=== PATIENT | male | born 1995 | race Caucasian/White ===

== ENCOUNTER 2020-02-14 18:33 | Emergency (ER) | payer SELFPAY ==
--- NOTE | 2020-02-14 19:41 | EDM.PDOC ---
ED HPI GENERAL MEDICAL PROBLEM - General Chief Complaint: General Stated Complaint: FEVER AND COUGH Time Seen by Provider: 02/14/20 19:16 - History of Present Illness INITIAL COMMENTS - FREE TEXT/NARRATIVE: no medical problems no recent travel no fever, no cough presenting for sore throat and congestion, requesting work clearance. symptoms started day of presentation to ED throat Pain Score (Numeric/FACES): 3 - Related Data Allergies Allergy/AdvReac Type Severity Reaction Status Date / Time No Known Allergies Allergy Verified 02/14/20 18:52 Home Meds: Home Meds . [No Known Home Meds] 02/14/20 [History] Past Medical History - Past Health History Medical/Surgical History: Denies Medical/Surgical History Social & Family History - Family History Family Medical History: Noncontributory - Tobacco Use Smoking Status *Q: Never Smoker - Recreational Drug Use Recreational Drug Use: No ED ROS GENERAL - Review of Systems Review Of Systems: Comprehensive ROS is negative, except as noted in HPI. Constitutional: Reports: No Symptoms ED EXAM, GENERAL - Physical Exam Exam: See Below Free Text/Narrative:: patient in no distress wearing a mask speaking in full sentences no tahcypnea Exam Limited By: No Limitations General Appearance: Alert Ears: Normal External Exam Respiratory/Chest: No Respiratory Distress Skin Exam: No Rash Course - Vital Signs Last Recorded V/S: Last Vital Signs Temp 97.5 F 02/14/20 18:49 Pulse 75 02/14/20 18:49 Resp 16 02/14/20 18:49 BP 120/72 02/14/20 18:49 Pulse Ox 97 02/14/20 18:49 - Re-Assessments/Exams Free Text/Narrative Re-Assessment/Exam: 02/14/20 19:41 afebrile, given congestion unlikely to be strep return precautions discussed with the patient, worsening throat pain, fever, dyspnea, cough or any concerns Patient educated on self isolation patient educated on symtpoms of covid 19 told to self quarantine as per CDC : At least 3 days (72 hours) have passed since recovery defined as resolution of fever without the use of fever-reducing medications and improvement in respiratory symptoms (e.g., cough, shortness of breath); and, At least 7 days have passed since symptoms first appeared. Departure - Departure Time of Disposition: 19:47 Disposition: Home, Self-Care 01 Condition: Good Clinical Impression: URI (upper respiratory infection) - Discharge Information Instructions: Upper Respiratory Infection, Adult, [id number] Referrals: PCP,None [Primary Care Provider] - Additional Instructions: contact a health provider if you develop fever cough shortness of breath worsening pain or any concerns Self isolation: At least 3 days (72 hours) have passed since recovery defined as resolution of fever without the use of fever-reducing medications and improvement in respiratory symptoms (e.g., cough, shortness of breath); and, At least 7 days have passed since symptoms first appeared. The following information is given to patients seen in the emergency department who are being discharged to home. This information is to outline your options for follow-up care. We provide all patients seen in our emergency department with a follow-up referral. The need for follow-up, as well as the timing and circumstances, are variable depending upon the specifics of your emergency department visit. If you don't have a primary care physician on staff, we will provide you with a referral. We always advise you to contact your personal physician following an emergency department visit to inform them of the circumstance of the visit and for follow-up with them and/or the need for any referrals to a consulting specialist. The emergency department will also refer you to a specialist when appropriate. This referral assures that you have the opportunity for follow-up care with a specialist. All of these measure are taken in an effort to provide you with optimal care, which includes your follow-up. Under all circumstances we always encourage you to contact your private physician who remains a resource for coordinating your care. When calling for follow-up care, please make the office aware that this follow-up is from your recent emergency room visit. If for any reason you are refused follow-up, please contact the [facility] Emergency Department at and asked to speak to the emergency department charge nurse Sepsis Event Note - Evaluation Sepsis Screening Result: No Definite Risk - Focused Exam Vital Signs: Vital Signs Temp Pulse Resp BP Pulse Ox 02/14/20 18:49 97.5 F 75 16 120/72 97 Date Exam was Performed: 02/14/20 Time Exam was Performed: 19:36
== END 2020-02-14 20:04 | disposition home or self-care (01) ==
LOC: MW.ED 18:33
DX: J06.9 Acute upper respiratory infection, unspecified (principal)
CPT/HCPCS: 99282; 99283

== ENCOUNTER 2020-10-11 10:00 | Emergency (ER) | payer SELFPAY ==
--- NOTE | 2020-10-11 10:04 | EDM.PDOC ---
ED HPI GENERAL MEDICAL PROBLEM - General Stated Complaint: CHILLS COUGH THROAT SORE Time Seen by Provider: 10/11/20 10:02 Source of Information: Reports: Patient History Limitations: Reports: No Limitations - History of Present Illness INITIAL COMMENTS - FREE TEXT/NARRATIVE: HISTORY AND PHYSICAL: History of present illness: Patient is a 24-year-old male who presents to the emergency room with complaints of generalized body aches, sinus pressure/congestion, subjective fever/chills and sore throat. He states the sore throat started today although the other symptoms have been ongoing for the past 2 to 3 days. He is concerned he may have COVID-19. Patient denies any headache, change in vision, syncope or near syncope. Denies any chest pain, back pain, shortness of breath or cough. Denies any abdominal pain, nausea, vomiting, diarrhea, constipation or dysuria. Patient has been eating and drinking appropriately. No known personal history of any medical problems. Review of systems: As per history of present illness and below otherwise all systems reviewed and negative. Past medical history: As per history of present illness and as reviewed below otherwise noncontributory. Surgical history: As per history of present illness and as reviewed below otherwise noncontributory. Social history: See social history for further information Family history: As per history of present illness and as reviewed below otherwise noncontributory. Physical exam: General: Well developed and well nourished 24 year old male. Alert and orientated x 3. Nontoxic in appearance and in no acute distress. Vital signs are stable and have been reviewed by me. Nursing notes were reviewed. HEENT: Atraumatic, normocephalic, pupils equal and reactive bilaterally, negative for conjunctival pallor or scleral icterus, mucous membranes moist, TMs normal bilaterally, throat clear, neck supple, nontender, trachea midline. No drooling or trismus noted. No meningeal signs. No hot potato voice noted. Lungs: Clear to auscultation, breath sounds equal bilaterally, chest nontender. Normal work of breathing, no accessory muscles used. Heart: S1S2, regular rate and rhythm without overt murmur Abdomen: Soft, nondistended, nontender. Negative for masses or hepatosplenomegaly. Negative for costovertebral tenderness. Skin: Intact, warm, dry. No lesions or rashes noted. Hematologic: No petechiae or purpra. Mucosa appropriate color and normal nail bed color and refill. Extremities: Atraumatic, moves all extremities per self without difficulty or deficits, negative for cords or calf pain. Neurovascular unremarkable. Neuro: Awake, alert, oriented. Cranial nerves II through XII unremarkable. Cerebellum unremarkable. Motor and sensory unremarkable throughout. Exam nonfocal. Psychiatric: Mood and affect are appropriate. Normal thought process. Answering questions appropriately. Notes: Patient's strep and Covid screening are negative. Due to his symptomatology I did ask him to quarantine until he has his state results back. His vital signs are stable and he is appropriate to be discharged to home. I have talked with the patient about today's findings, in addition to providing specific details for plan of care. Reassessment at the time of disposition demonstrates that the patient is in no acute distress. The patient is stable for discharge, counseling was provided and we discussed in great detail signs and symptoms that would prompt them to return to the Emergency Department. Medication, follow up and supportive care measures were reviewed and discussed. Voices understanding and is agreeable to plan of care. Denies any further questions or concerns at this time. Diagnostics: COVID-19, STrep Therapeutics: None Prescription: None Impression: Viral illness Plan: 1. Your COVID-19 screening is negative. If you are not in close contact to someone who is positive, you should continue to practice physical distancing and limit your interactions with others as much as possible. You may attend work and attend/perform essential activities if you are not sick. If you continue to feel unwell please stay home. If you are in close contact with someone who tested positive, then you should continue to quarantine until you complete 10 days. 2. COVID-19 testing is not 100% accurate, we have done a send out swab to the [facility], this takes 2-4 days for results. 3. You can take NyQuil during the evening to help get a restful night sleep. Alternate Tylenol and ibuprofen as needed for pain and fever management. 4. The [place] COVID 19 Hotline phone number , They are open Wednesday - Wednesday 7am - 7pm. 5. Follow up with your primary care provider for re-evaluation and if your symptoms should worsen, new symptoms develop or you feel like you are not improving you are always welcome to return to the emergency room. Definitive disposition and diagnosis as appropriate pending reevaluation and review of above. - Related Data Allergies Allergy/AdvReac Type Severity Reaction Status Date / Time No Known Allergies Allergy Verified 10/11/20 10:23 Home Meds: Home Meds . [No Known Home Meds] 02/14/20 [History] Past Medical History - Past Health History Medical/Surgical History: Denies Medical/Surgical History Social & Family History - Family History Family Medical History: No Pertinent Family History ED ROS ENT - Review of Systems Review Of Systems: Comprehensive ROS is negative, except as noted in HPI. ED EXAM, ENT - Physical Exam Exam: See Below (See dictation) Course - Vital Signs Last Recorded V/S: Last Vital Signs Temp 98.1 F 10/11/20 10:23 Pulse 50 L 10/11/20 10:23 Resp 17 10/11/20 10:23 BP 111/69 10/11/20 10:23 Pulse Ox - Orders/Labs/Meds Orders: Active Orders 24 hr Category Date Time Status CORONAVIRUS COVID-19 PCR PHL Stat Lab 10/11/20 10:37 Received CULTURE STREP A CONFIRMATION [RM] Stat Lab 10/11/20 10:37 Results STREP SCRN A RAPID W CULT CONF [RM] Stat Lab 10/11/20 10:37 Results Labs: Laboratory Tests 10/11/20 Range/Units 10:37 SARS CoV-2 RNA Rapid JUDAH NEGATIVE (NEGATIVE) Departure - Departure Time of Disposition: 11:17 Disposition: Home, Self-Care 01 Clinical Impression: Viral illness - Discharge Information Instructions: Viral Respiratory Infection, [id number] Referrals: PCP,None [Primary Care Provider] - Forms: ED Department Discharge Additional Instructions: The following information is given to patients seen in the emergency department who are being discharged to home. This information is to outline your options for follow-up care. We provide all patients seen in our emergency department with a follow-up referral. The need for follow-up, as well as the timing and circumstances, are variable depending upon the specifics of your emergency department visit. If you don't have a primary care physician on staff, we will provide you with a referral. We always advise you to contact your personal physician following an emergency department visit to inform them of the circumstance of the visit and for follow-up with them and/or the need for any referrals to a consulting specialist. The emergency department will also refer you to a specialist when appropriate. This referral assures that you have the opportunity for follow-up care with a s pecialist. All of these measure are taken in an effort to provide you with optimal care, which includes your follow-up. Under all circumstances we always encourage you to contact your private physici an who remains a resource for coordinating your care. When calling for follow-up care, please make the office aware that this follow-up is from your recent emergency room visit. If for any reason you are refused follow-up, please contact the [facility] Emergency Department at and asked to speak to the emergency department charge nurse. [facility] [address] [place] [id number] [facility] [address] [place] [id number] Thank you for choosing the [facility] emergency department in [place] for your medical needs today. It was a pleasure caring for you. Today you were seen in the emergency department for COVID type symptoms. 1. Your COVID-19 screening is negative. If you are not in close contact to someone who is positive, you should continue to practice physical distancing and limit your interactions with others as much as possible. You may attend work and attend/perform essential activities if you are not sick. If you continue to feel unwell please stay home. If you are in close contact with someone who tested positive, then you should continue to quarantine until you complete 10 days. 2. COVID-19 testing is not 100% accurate, we have done a send out swab to the [place], this takes 2-4 days for results. 3. You can take NyQuil during the evening to help get a restful night sleep. Alternate Tylenol and ibuprofen as needed for pain and fever management. 4. The [place] COVID 19 Hotline phone number , They are open Wednesday - Wednesday 7am - 7pm. 5. Follow up with your primary care provider for re-evaluation and if your symptoms should worsen, new symptoms develop or you feel like you are not improving you are always welcome to return to the emergency room. Sepsis Event Note (ED) - Focused Exam Vital Signs: Vital Signs Temp Pulse Resp BP 10/11/20 10:23 98.1 F 50 L 17 111/69 - My Orders Last 24 Hours: My Active Orders 10/11/20 10:37 CORONAVIRUS COVID-19 PCR PHL Stat CULTURE STREP A CONFIRMATION [RM] Stat STREP SCRN A RAPID W CULT CONF [RM] Stat - Assessment/Plan Last 24 Hours: My Active Orders 10/11/20 10:37 CORONAVIRUS COVID-19 PCR PHL Stat CULTURE STREP A CONFIRMATION [RM] Stat STREP SCRN A RAPID W CULT CONF [RM] Stat
== END 2020-10-11 11:30 | disposition home or self-care (01) ==
LOC: MW.ED 10:00
DX: B34.9 Viral infection, unspecified (principal); Z20.828 Contact with and (suspected) exposure to other viral communicable diseases
CPT/HCPCS: 87081; 87880-QW; 99282; 99283; U0002

== ENCOUNTER 2021-04-01 07:41 | Emergency (ER) | payer SELFPAY ==
[2021-04-01] MEDS ORDERED: Ketorolac 15 MG/ML SDV IM ONE (08:16)
--- NOTE | 2021-04-01 08:56 | CR ---
Indication: Chest discomfort Comparison: None available. Technique: Single AP view chest Findings: There is no focal consolidation, effusion, or pneumothorax. The cardiomediastinal silhouette is within normal limits. The bony thorax is grossly intact. Impression: No acute cardiopulmonary abnormality. Dictated by Gabe Frances MD @ 04/01/2021 8:55:[address] Gabe Frances @ Apr 01 2021 8:55AM
--- NOTE | 2021-04-01 09:56 | EDM.PDOC ---
ED HPI GENERAL MEDICAL PROBLEM - General Chief Complaint: General Stated Complaint: SORE THROAT Time Seen by Provider: 04/01/21 08:03 - History of Present Illness INITIAL COMMENTS - FREE TEXT/NARRATIVE: CHIEF COMPLAINT(S): "Not feeling good." HISTORY OF PRESENT ILLNESS: This is a 25-year-old man without any significant past medical history who comes to the emergency department with a chief complaint of "not feeling good." The patient states that he has been experiencing a stuffy nose, sore throat and inflammation. He states that he has been experiencing some diarrhea today which is nonbloody and nonbilious and denies any abdominal pain. He states that he sometimes has seasonal allergies but everybody was feeling fine and then 1 week ago he had contacts where everybody was having diarrhea, stuffy nose and sore throat. He states that his chest also feels bruised for the last 3 days and denies any shortness of breath, back pain, history of CAD, CHF. He states that he needs some paperwork filled out for his work because he is here today. REVIEW OF SYSTEMS: Constitutional: Denies fever, chills. Eyes: Denies eye pain Ears, Nose, Mouth, & Throat: Positive for sore throat, runny nose, congestion denies earache Cardiovascular: Positive for chest discomfort. Denies chest pain Respiratory: Denies shortness of breath Gastrointestinal: Positive for abdominal pain, diarrhea. Denies nausea, vomiting Genitourinary: Denies hematuria Skin:Denies a rash MSK: Denies joint pain Neurological: Denies blurred vision Psychiatric: Denies depression PAST MEDICAL HISTORY: As per history of present illness and as reviewed below otherwise noncontributory. SURGICAL HISTORY: As per history of present illness and as reviewed below otherwise noncontributory. SOCIAL HISTORY: As per history of present illness and as reviewed below otherwise noncontributory. FAMILY HISTORY: As per history of present illness and as reviewed below otherwise noncontributory. EXAMINATION OF ORGAN SYSTEMS/BODY AREAS: Constitutional: Blood pressure was 112/61, heart rate 55, respiratory rate 15 with an oxygen saturation 97% on room air. Temperature 36.2 General: Overall well-appearing man who is in no acute distress. Psychiatric: Appropriate mood and affect. Eyes: No scleral icterus or conjunctival erythema ENMT: Moist mucous membranes. No pharyngeal erythema Cardiovascular: Regular, rate, and rhythm. No gallops, murmurs, or rubs. Bilateral upper extremity pulses symmetric and intact. No peripheral edema. No JVD. Respiratory: Lungs clear to auscultation bilaterally. No wheezes, rales, or rhonchi. Gastrointestinal: Soft, non-tender, non-distended. Normoactive bowel sounds no rebound or guarding. Genitourinary: No suprapubic tenderness Musculoskeletal: Normal range of motion. Skin: No lesions or abrasions. Neurological: Alert, GCS 15 MEDICAL DECISION MAKING AND COURSE IN THE ED WITH INTERPRETATION/REVIEW OF DIAGNOSTIC STUDIES: This is a 25-year-old man without any significant past medical history who comes to the emergency department with multiple complaints including allergic-like symptoms and diarrhea with abdominal pain with known sick contacts who overall appears well. At this time we will provide the patient with Toradol IM and obtain a [id number] glucose. A screening EKG was obtained which did not reveal any acute signs of ischemia. We will obtain a stool sample to evaluate for stool culture and studies. Will obtain a chest x- ray. We will reevaluate the patient after this. I do not believe any further imaging or work-up is indicated. The patient was able to provide a stool sample. The sample was not diarrhea and there was a fully formed stool. At this time I do not believe any further work- up is indicated. The radiological images were viewed by myself along with reading the report from the radiologist. Chest x-ray does not reveal any acute cardiopulmonary process After initial work-up the patient reported improvement in his pain. I did discuss them at this time that although his stool was formed if he has any continued diarrhea the need to maintain adequate fluid hydration. He is to return for any new or worsening symptoms such as worsening chest pain, shortness of breath, passing out. He was amenable to discharge at this time and had no further questions DISPOSITION: The patient was discharged home in stable condition. The patient will follow up with primary care physician in 2 to 3 days CONDITION: Fair PROCEDURES: None FINAL IMPRESSION(S)/DIAGNOSES: 1. Acute abdominal pain and diarrhea likely secondary to gastritis except defaults 2. Acute atypical chest pain Lobo Yeboah M.D. - Related Data Allergies Allergy/AdvReac Type Severity Reaction Status Date / Time No Known Allergies Allergy Verified 04/01/21 07:58 Home Meds: Home Meds . [No Known Home Meds] 02/14/20 [History] Past Medical History - Past Health History Medical/Surgical History: Denies Medical/Surgical History HEENT History: Reports: None Cardiovascular History: Reports: None Respiratory History: Reports: None Gastrointestinal History: Reports: None Genitourinary History: Reports: None Musculoskeletal History: Reports: None Neurological History: Reports: None Psychiatric History: Reports: None Endocrine/Metabolic History: Reports: None Hematologic History: Reports: None Immunologic History: Reports: None Oncologic (Cancer) History: Reports: None Dermatologic History: Reports: None - Infectious Disease History Infectious Disease History: Reports: None - Past Surgical History Head Surgeries/Procedures: Reports: None HEENT Surgical History: Reports: None Cardiovascular Surgical History: Reports: None Respiratory Surgical History: Reports: None GI Surgical History: Reports: None Male Surgical History: Reports: None Endocrine Surgical History: Reports: None Neurological Surgical History: Reports: None Musculoskeletal Surgical History: Reports: None Oncologic Surgical History: Reports: None Dermatological Surgical History: Reports: None Social & Family History - Family History Family Medical History: No Pertinent Family History - Tobacco Use Tobacco Use Status *Q: Former Tobacco User Used Tobacco, but Quit: No - Caffeine Use Caffeine Use: Reports: None - Recreational Drug Use Recreational Drug Use: No ED ROS GENERAL - Review of Systems Review Of Systems: See Below ED EXAM, GENERAL - Physical Exam Exam: See Below Course - Vital Signs Last Recorded V/S: Last Vital Signs Temp 36.2 C 04/01/21 07:58 Pulse 50 L 04/01/21 09:48 Resp 15 04/01/21 07:58 BP 112/69 04/01/21 09:48 Pulse Ox 98 04/01/21 09:48 - Orders/Labs/Meds Labs: Laboratory Tests 04/01/21 Range/Units 08:22 POC Glucose 88 (70-99) mg/dL Meds: Medications Discontinued Medications Generic Name Dose Route Start Last Admin Trade Name Martha PRN Reason Stop Dose Admin Ketorolac Tromethamine 15 mg 04/01/21 08:16 04/01/21 08:25 Ketorolac 15 Mg/Ml Sdv IM 04/01/21 08:17 15 mg ONETIME ONE Administration Departure - Departure Time of Disposition: 09:55 Disposition: Home, Self-Care 01 Condition: Fair Clinical Impression: Diarrhea, Chest pain - Discharge Information *PRESCRIPTION DRUG MONITORING PROGRAM REVIEWED*: No *COPY OF PRESCRIPTION DRUG MONITORING REPORT IN PATIENT MANAS: No Instructions: Nonspecific Chest Pain, Adult, [id number], Diarrhea, Adult, [id number] Referrals: PCP,None [Primary Care Provider] - Forms: ED Department Discharge Additional Instructions: You evaluate today on an emergent basis. At this time your work-up was negative. Your chest x-ray was normal. We did obtain a stool sample however it was not diarrhea. If you continue to have diarrhea I recommend that you continue with fluid in the form of Gatorade or Pedialyte to maintain hydration. If you have any worsening chest pain, shortness of breath please return to the emergency department. Otherwise please follow-up with your primary care physician within 2 to 3 days. [facility] [address] [place], [place] [id number] [place] [address] The patient is informed of any results of their evaluation and diagnostic workup and all questions are answered. They are given discharge instructions and return precautions. The patient is stable for discharge. The patient states they understand and agree with the plan and that they will return if their symptoms get worse or if they have any new concerns. The following information is given to patients seen in the emergency department who are being discharged to home. This information is to outline your options for follow-up care. We provide all patients seen in our emergency department with a follow-up referral. The need for follow-up, as well as the timing and circumstances, are variable depending upon the specifics of your emergency department visit. If you don't have a primary care physician on staff, we will provide you with a referral. We always advise you to contact your personal physician following an emergency department visit to inform them of the circumstance of the visit and for follow-up with them and/or the need for any referrals to a consulting specialist. The emergency department will also refer you to a specialist when appropriate. This referral assures that you have the opportunity for follow-up care with a specialist. All of these measure are taken in an effort to provide you with optimal care, which includes your follow-up. Under all circumstances we always encourage you to contact your private physician who remains a resource for coordinating your care. When calling for follow-up care, please make the office aware that this follow-up is from your recent emergency room visit. If for any reason you are refused follow-up, please contact the [facility] Emergency Department at and asked to speak to the emergency department charge nurse. Sepsis Event Note (ED) - Evaluation Sepsis Screening Result: No Definite Risk
--- NOTE | 2021-04-02 18:50 | PCM.EKG ---
#1 Interpretation EKG Date: 04/01/21 Time: 08:27 Rhythm: NSR Rate (Beats/Min): 44 Duncan: Normal P-Wave: Present QRS: Normal ST-T: Normal QT: Normal Comparison: NA - No Prior EKG EKG Interpretation Comments: Sinus Bradycardia
== END 2021-04-01 10:04 | disposition home or self-care (01) ==
LOC: MW.ED 07:41
DX: R07.9 Chest pain, unspecified (principal); R10.9 Unspecified abdominal pain; R19.7 Diarrhea, unspecified; Z87.891 Personal history of nicotine dependence
CPT/HCPCS: 71045; 82947; 93005; 96372; 99284; J1885; 99283

== ENCOUNTER 2021-06-17 05:17 | Emergency (ER) | payer BC ==
[2021-06-17] MEDS ORDERED: Ondansetron 4 MG/2 ML SDV IVPUSH ONE (05:45)
[2021-06-17] MEDS ORDERED: Sodium Chloride 0.9% 10 ML Syringe FLUSH PRN (05:45)
[2021-06-17] MEDS ORDERED: Pantoprazole 40 MG in Sodium Chloride 0.9% 10 ML IV ONE (05:45)
[2021-06-17] MEDS ORDERED: Sodium Chloride 0.9% 2.5 ML Syringe FLUSH PRN (05:45)
[2021-06-17] MEDS ORDERED: Sodium Chloride 0.9% 1,000 ML IV ONE (05:45)
--- NOTE | 2021-06-17 06:26 | EDM.PDOC ---
<Jonatan Foster - Last Filed: 06/17/21 06:22> ED HPI GENERAL MEDICAL PROBLEM - General Chief Complaint: Gastrointestinal Problem Stated Complaint: ABDOMINAL PAIN, VOMITING, UNABLE TO EAT Time Seen by Provider: 06/17/21 06:40 - History of Present Illness INITIAL COMMENTS - FREE TEXT/NARRATIVE: HISTORY AND PHYSICAL: History of present illness: This is a 25-year-old gentleman with no significant past medical history for hypertension, diabetes, liver, lung, kidney, ulcer disease, intestinal issues, no abdominal surgeries, who presents ER today secondary to lower abdominal pain times several days with nausea and vomiting x1 yesterday. Patient denies any dysuria, frequency, urgency. Patient denies any recent fevers, shakes, chills. Patient has any cough or congestion. Patient reports that he went to see his doctor yesterday and was diagnosed with a stomach flu and was started on amoxicillin but patient is concerned that he may be developing ulcer or other issues unrelated to the stomach flu. Patient denies any melena or bright red blood per rectum. Patient reports that when he vomited it was food material with no hematemesis or coffee-ground material in the vomit. Patient denies any prior abdominal or chest surgeries. Patient denies any alcohol or drugs. Patient reports that he does vape. Patient has no known drug allergies. Review of systems: As per history of present illness and below otherwise all systems reviewed and negative. Past medical history: As per history of present illness and as reviewed below otherwise noncontributory. Surgical history: As per history of present illness and as reviewed below otherwise noncontributory. Social history: No reported history of drug abuse. Family history: As per history of present illness and as reviewed below otherwise noncontributory. Physical exam: This patient was seen and evaluated during the 2019 SARS-CoV-2 novel coronavirus pandemic period. Community viral transmission is ongoing at time of this encounter and the emergency department is operating under pandemic response procedures. Constitutional: Patient is oriented to person, place, and time. Appears well- developed and well-nourished. No distress. HEENT: Moist mucous membranes Head: Normocephalic and atraumatic Eyes: Right eye exhibits no discharge. Left eye exhibits no discharge. No scleral icterus Neck: Normal range of motion. No tracheal deviation present. Cardiovascular: Normal rate and regular rhythm. Pulmonary: Effort normal, no respiratory distress. Abd: Soft, nondistended, no rebound/guarding, no psoas or obturator signs, no tenderness at Mcberney's point, no Garg's sign. Pt does not present with an exam that would be consistent with an acute surgical abdomen at this time. Tenderness palpation to his right lower and left lower quadrants. Patient with minimal tenderness palpation to his midepigastric region Musculoskeletal: Normal range of motion Neurologic: Alert and oriented to person, place and time. Skin: [place], warm and dry. Psychiatric: Normal mood and affect. Behavior is normal. Judgment and thought content normal. Nursing note and vital signs have been reviewed Diagnostics: CBC, CMP, lipase, CT scan of the abdomen pelvis with IV contrast, urinalysis Therapeutics: Protonix 40 mg IV, Zofran 4 mg IV, NSS x1 L Assessment and plan: This is a healthy 25-year-old gentleman who presents ER today secondary to abdominal pain times several days with associated nausea and vomiting. Patient's exam is significant for tenderness to palpation to his left lower and right lower quadrants. Patient will have labs evaluated in the ED and will have a CT scan of his abdomen pelvis with contrast to assure no evidence of appendicitis on this patient. Patient has been given Protonix, Zofran and IV fluids in the ED and will be reassessed. 7 AM: Care signed out to oncoming physician Dr. Brown, for final disposition pending lab completion, CT scan of the abdomen pelvis, reevaluation. Definitive disposition and diagnosis as appropriate pending reevaluation and review of above. - Related Data Allergies Allergy/AdvReac Type Severity Reaction Status Date / Time No Known Allergies Allergy Verified 06/17/21 05:35 Home Meds: Home Meds . [No Known Home Meds] 02/14/20 [History] Past Medical History - Past Health History Medical/Surgical History: Denies Medical/Surgical History HEENT History: Reports: None Cardiovascular History: Reports: None Respiratory History: Reports: None Gastrointestinal History: Reports: None Genitourinary History: Reports: None Musculoskeletal History: Reports: None Neurological History: Reports: None Psychiatric History: Reports: None Endocrine/Metabolic History: Reports: None Hematologic History: Reports: None Immunologic History: Reports: None Oncologic (Cancer) History: Reports: None Dermatologic History: Reports: None - Infectious Disease History Infectious Disease History: Reports: None - Past Surgical History Head Surgeries/Procedures: Reports: None HEENT Surgical History: Reports: None Cardiovascular Surgical History: Reports: None Respiratory Surgical History: Reports: None GI Surgical History: Reports: None Male Surgical History: Reports: None Endocrine Surgical History: Reports: None Neurological Surgical History: Reports: None Musculoskeletal Surgical History: Reports: None Oncologic Surgical History: Reports: None Dermatological Surgical History: Reports: None Social & Family History - Family History Family Medical History: No Pertinent Family History - Caffeine Use Caffeine Use: Reports: None - Recreational Drug Use Recreational Drug Use: No ED ROS GENERAL - Review of Systems Review Of Systems: See Below ED EXAM, GENERAL - Physical Exam Exam: See Below Departure - Departure Disposition: Home, Self-Care 01 Clinical Impression: Abdominal pain - Discharge Information Instructions: Abdominal Pain, Adult, [id number] Referrals: PCP,None [Primary Care Provider] - Forms: ED Department Discharge Additional Instructions: The following information is given to patients seen in the emergency department who are being discharged to home. This information is to outline your options for follow-up care. We provide all patients seen in our emergency department with a follow-up referral. The need for follow-up, as well as the timing and circumstances, are variable depending upon the specifics of your emergency department visit. If you don't have a primary care physician on staff, we will provide you with a referral. We always advise you to contact your personal physician following an emergency department visit to inform them of the circumstance of the visit and for follow-up with them and/or the need for any referrals to a consulting specialist. The emergency department will also refer you to a specialist when appropriate. This referral assures that you have the opportunity for follow-up care with a specialist. All of these measure are taken in an effort to provide you with optimal care, which includes your follow-up. Under all circumstances we always encourage you to contact your private physician who remains a resource for coordinating your care. When calling for follow-up care, please make the office aware that this follow-up is from your recent emergency room visit. If for any reason you are refused follow-up, please contact the [facility] Emergency Department at and asked to speak to the emergency department charge nurse. Please follow up with your primary care physician. If you do not have a primary care physician, see below: [facility] [address] [place] [address] [facility] [address] [place] [address] You were seen today for lower abdominal pain. You have saw your primary care physician as well was placed antibiotics is unclear why you are placed on antibiotics. Your CAT scan did not show any concerning findings. Your labs were within normal range but you did have a low calcium. Recommend you go home continue stay hydrated and follow-up with your primary care physician as needed. Sepsis Event Note (ED) - Evaluation Sepsis Screening Result: No Definite Risk <Ronan Brown - Last Filed: 06/17/21 08:48> ED HPI GENERAL MEDICAL PROBLEM - General Source of Information: Reports: Patient Course - Vital Signs Last Recorded V/S: Last Vital Signs Temp 97.8 F 06/17/21 05:31 Pulse 78 06/17/21 05:31 Resp 15 06/17/21 05:31 BP 118/70 06/17/21 05:31 Pulse Ox 100 06/17/21 05:31 - Orders/Labs/Meds Orders: Active Orders 24 hr Category Date Time Status Sodium Chloride 0.9% [Saline Flush] Med 06/17/21 05:45 Active 10 ml FLUSH ASDIRECTED PRN Sodium Chloride 0.9% [Saline Flush] Med 06/17/21 05:45 Active 2.5 ml FLUSH ASDIRECTED PRN Saline Lock Insert [OM.PC] Stat Oth 06/17/21 05:45 Ordered Medication Orders Sodium Chloride (Sodium Chloride 0.9% 10 Ml Syringe) 10 ml FLUSH ASDIRECTED PRN PRN Reason: Keep Vein Open Sodium Chloride (Sodium Chloride 0.9% 2.5 Ml Syringe) 2.5 ml FLUSH ASDIRECTED PRN PRN Reason: Keep Vein Open Labs: Laboratory Tests 06/17/21 06/17/21 06/17/21 Range/Units 06:19 06:19 06:56 WBC 4.83 (4.0-11.0) K/uL RBC 5.00 (4.50-5.90) M/uL Hgb 15.3 (13.0-17.0) g/dL Hct 44.5 (38.0-50.0) % MCV 89.0 (80.0-98.0) fL MCH 30.6 (27.0-32.0) pg MCHC 34.4 (31.0-37.0) g/dL RDW Std Deviation 42.2 (28.0-62.0) fl RDW Coeff of [place] 13 (11.0-15.0) % Plt Count 183 (150-400) K/uL MPV 11.30 (7.40-12.00) fL Neut % (Auto) 53.4 (48.0-80.0) % Lymph % (Auto) 34.2 (16.0-40.0) % [place] % (Auto) 9.9 (0.0-15.0) % Eos % (Auto) 1.9 (0.0-7.0) % Baso % (Auto) 0.6 (0.0-1.5) % Neut # (Auto) 2.6 (1.4-5.7) K/uL Lymph # (Auto) 1.7 (0.6-2.4) K/uL [place] # (Auto) 0.5 (0.0-0.8) K/uL Eos # (Auto) 0.1 (0.0-0.7) K/uL Baso # (Auto) 0.0 (0.0-0.1) K/uL Nucleated RBC % 0.0 /100WBC Nucleated RBCs # 0 K/uL Sodium 142 (136-148) mmol/L Potassium 5.0 (3.5-5.1) mmol/L Chloride 104 (98-107) mmol/L Carbon Dioxide 28.5 (21.0-32.0) mmol/L BUN 14 (7.0-18.0) mg/dL Creatinine 0.9 (0.8-1.3) mg/dL Est Cr Clr Drug Dosing TNP Estimated GFR (MDRD) > 60.0 ml/min Glucose 102 (74-106) mg/dL Calcium 8.0 L (8.5-10.1) mg/dL Total Bilirubin 0.9 (0.2-1.0) mg/dL AST 15 (15-37) IU/L ALT 21 (14-63) IU/L Alkaline Phosphatase 59 (46-116) U/L Total Protein 6.3 L (6.4-8.2) g/dL Albumin 3.8 (3.4-5.0) g/dL Globulin 2.5 L (2.6-4.0) g/dL Albumin/Globulin Ratio 1.5 (0.9-1.6) Lipase 51 L (73-393) U/L Urine Color YELLOW Urine Appearance CLEAR Urine pH 6.0 (5.0-8.0) Ur Specific [place] >= 1.030 (1.001-1.035) Urine Protein NEGATIVE (NEGATIVE) mg/dL Urine Glucose (UA) NEGATIVE (NEGATIVE) mg/dL Urine Ketones NEGATIVE (NEGATIVE) mg/dL Urine Occult Blood NEGATIVE (NEGATIVE) Urine Nitrite NEGATIVE (NEGATIVE) Urine Bilirubin SMALL H (NEGATIVE) Urine Ictotest NEGATIVE Urine Urobilinogen 1.0 (<2.0) EU/dL Ur Leukocyte Esterase NEGATIVE (NEGATIVE) Meds: Medications Generic Name Dose Route Start Last Admin Trade Name Freq PRN Reason Stop Dose Admin Sodium Chloride 10 ml 06/17/21 05:45 Sodium Chloride 0.9% 10 Ml Syringe FLUSH ASDIRECTED PRN Keep Vein Open Sodium Chloride 2.5 ml 06/17/21 05:45 Sodium Chloride 0.9% 2.5 Ml Syringe FLUSH ASDIRECTED PRN Keep Vein Open Discontinued Medications Generic Name Dose Route Start Last Admin Trade Name Freq PRN Reason Stop Dose Admin Pantoprazole Sodium 40 mg/ 10 mls @ 300 mls/hr 06/17/21 05:45 06/17/21 06:27 Sodium Chloride IV 06/17/21 05:46 300 mls/hr NOW ONE Administration Sodium Chloride 1,000 mls @ 999 mls/hr 06/17/21 05:45 06/17/21 06:27 Normal Saline IV 06/17/21 06:45 999 mls/hr .Bolus ONE Administration Iopamidol 100 ml 06/17/21 08:04 06/17/21 08:05 Iopamidol 755 Mg/Ml 500 Ml Multipack Bottle IVPUSH 06/17/21 08:05 100 ml ONETIME STA Administration Ondansetron HCl 4 mg 06/17/21 05:45 06/17/21 06:27 Ondansetron 4 Mg/2 Ml Sdv IVPUSH 06/17/21 05:46 4 mg ONETIME ONE Administration - Re-Assessments/Exams Free Text/Narrative Re-Assessment/Exam: 06/17/21 08:46 Patient signed out to me from previous provider pending CT scan abdomen pelvis. Patient has no abdominal pain that been bothering him and he saw his PMD was placed on amoxicillin but unclear why antibiotics. Patient CAT scan is normal labs are within normal ranges low calcium should be repleted. Patient be discharged home. Departure - Departure Time of Disposition: 08:47 Condition: Good - Discharge Information *PRESCRIPTION DRUG MONITORING PROGRAM REVIEWED*: Not Applicable *COPY OF PRESCRIPTION DRUG MONITORING REPORT IN PATIENT MANAS: Not Applicable Sepsis Event Note (ED) - Focused Exam Vital Signs: Vital Signs Temp Pulse Resp BP Pulse Ox 06/17/21 05:31 97.8 F 78 15 118/70 100
[2021-06-17 07:26] LABS: BLOOD UREA NITROGEN,BUN 14 mg/dL (7.0-18.0); CARBON DIOXIDE,CO2 28.5 mmol/L (21.0-32.0); CHLORIDE,CL 104 mmol/L (98-107); GLUCOSE RANDOM 102 mg/dL (74-106); LIPASE 51 U/L (73-393); SODIUM,NA 142 mmol/L (136-148)
[2021-06-17] MEDS ORDERED: Iopamidol 755 MG/ML 500 ML Multipack Bottle IVPUSH STA (08:04)
--- NOTE | 2021-06-17 08:35 | CT ---
INDICATION: Lower abdominal pain. Worse after eating. TECHNIQUE: CT abdomen and pelvis acquired with 100 cc Isovue 370 IV contrast. COMPARISON: None. FINDINGS: Lower chest: Unremarkable. Liver: Unremarkable. Normal in size and attenuation. No suspicious masses. Gallbladder and bile ducts: Unremarkable. No stones or inflammation. No biliary dilatation. Pancreas: Unremarkable. No mass or inflammation. Spleen: Unremarkable. Normal in size. No masses. Adrenal glands: Unremarkable. No nodules. Kidneys: Unremarkable. No suspicious masses, stones, or hydronephrosis. GI tract: Unremarkable. Normal in caliber. No sign of mass or inflammation. Appendix is difficult to discern. There are no signs of appendicitis. Vasculature: Unremarkable. Mesenteric arteries are patent. Lymph nodes: No lymphadenopathy. Omentum/Peritoneum/Abdominal Wall: Unremarkable. No sign of mass or infiltration. No free air or significant free fluid. Pelvis: Unremarkable. Bones: Unremarkable for age. IMPRESSION: Unremarkable CT of the abdomen and pelvis. No findings to explain lower abdominal pain. Please note that all CT scans at this facility use dose modulation, iterative reconstruction, and/or weight-based dosing when appropriate to reduce radiation dose to as low as reasonably achievable. Dictated by Hebert Latif MD @ 06/17/2021 8:34:[address] Hebert Latif @ Jun 17 2021 8:34AM
== END 2021-06-17 09:09 | disposition home or self-care (01) ==
LOC: MW.ED 05:17
DX: R10.9 Unspecified abdominal pain (principal); Z87.891 Personal history of nicotine dependence
CPT/HCPCS: 36415; 74177; 80053; 81003; 83690; 85025; 96374; 96375; 99284; C9113; J2405; J7030; Q9967

== ENCOUNTER 2022-02-01 20:45 | Emergency (ER) | payer BC | END 2022-02-01 21:45 | disposition left against medical advice (07) | LOC: MW.ED 20:45 | DX: Z53.21 Procedure and treatment not carried out due to patient leaving prior to being seen by health care provider (principal) ==